=== PATIENT | female | born 1930 | race Caucasian/White ===

== ENCOUNTER → 2017-04-13 | Outpatient (CLI) | payer OTHER, BC ==
[~2017-04-13] MED LIST: ADULT LOW DOSE81 MG PO; AMLODIPINE BESY10 MG PO; AMLODIPINE-BEN1 EAC2 PO; ARICEPT10 MG PO; ASPIRIN EC81 M1 PO; ATORVASTATIN CA40 MG PO; AVELOX 400 MG400 MG PO; BACTRIM DS TAB1 EACH PO; BYSTOLIC10 MG PO; CELEXA 20 MG TA20 M1 PO; CELEXA 20 MG TA20 MG PO; CELEXA20 MG PO; CILOSTAZOL50 MG PO; CIPROFLOXACIN500 M1 PO; CLARITIN10 M2 PO; CO Q-1010 MG PO; DOXYCYCLINE 10100 MG PO; EFFIENT10 MG PO; FLAGYL 250 MG250 MG PO; FLONASE 0.05%50 MCG INH; LEVOTHYROXINE0.05 MG PO; LOPERAMIDE 2 MG2 M1 PO; MAGNESIUM400 MG PO; METOPROLOL SUCC25 M1 PO; NAMENDA XR14 MG PO; NORCO 5-325 TA1 EACH PO; NORVASC 5 MG TAB5 MG PO; OMEPRAZOLE 20 M20 M1 PO; OXYCODONE H5 MG/5 ML PO; POTASSIUM20 PO; PRILOSEC 20 MG20 MG PO; PRILOSEC PO; PRILOSEC20 MG PO; VIBRAMYCIN 100100 M2 PO; ZEGERID 20 MG1 EACH PO; ZOCOR40 MG PO
== END ==
LOC: ULTRA 12:55
DX: R42 Dizziness and giddiness (principal); R26.89 Other abnormalities of gait and mobility; G45.9 Transient cerebral ischemic attack, unspecified